=== PATIENT | male | born 1985 | race Caucasian/White ===

== ENCOUNTER 2019-07-11 11:39 | Emergency (ER) | payer OTHER ==
[~2019-07-11] VITALS: Ht 170.2 cm; Wt 77.1 kg
[~2019-07-11 11:39] MED LIST: ALBU90OI INH; AMOX500 PO; CEPH500 PO; DOXY100 PO; HYDACE5 PO; HYDACE5325 PO; Norco 5-325 Ta1 EACH PO; OXYACE5T PO; PENVK500 PO; PROM25 PO; RXHYD5325 PO; SULTRIDS PO
== END 2019-07-11 12:45 | disposition home or self-care (01) ==
LOC: ER 11:39
DX: S61.216A Laceration without foreign body of right little finger without damage to nail, initial encounter (principal); W29.8XXA Contact with other powered hand tools and household machinery, initial encounter; F17.210 Nicotine dependence, cigarettes, uncomplicated
CPT/HCPCS: 12002; 90471; 90714; 99282-25